=== PATIENT | male | born 1955 | race American Indian/Alaskan Native ===

== ENCOUNTER 2017-10-08 09:40 | Emergency (ER) | payer OTHER ==
[2017-10-08 09:45] VITALS: BMI 30.7
[2017-10-08 09:52] VITALS: RESP 18
[2017-10-08] MEDS ORDERED: Sodium Chloride 0.9% 1,000 ML IV ONE (10:06)
[2017-10-08] MEDS ORDERED: Iohexol 240 (50 ml) PO STA (10:06)
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
--- NOTE | 2017-10-08 10:56 | US ---
HISTORY: abd pain RO ACUTE JUSTINA COMPARISON: Renal ultrasound performed 12/20/16 TECHNIQUE: Sonographic evaluation of the right upper quadrant of the abdomen. FINDINGS: LIVER: Measures 18.5 cm in length. Echogenic liver may be seen in setting of hepatic parenchymal disease or fatty infiltration. No focal hepatic mass identified. The main portal vein appears patent with normal directional flow. No intrahepatic bile duct dilatation. GALLBLADDER: No gallstones. No gallbladder wall thickening or pericholecystic edema. Negative sonographic Centeno's sign as assessed by the lubricating specialist. COMMON BILE DUCT: Measures 2 mm. PANCREAS: Not well-visualized. RIGHT KIDNEY: Measures 10.0 x 6.3 x 5.6 cm. No obstructing calculus or hydronephrosis identified. 3.4 x 3.2 x 3.5 cm right renal cyst. AORTA: Limited visualization appears grossly unremarkable. IVC: Not well-visualized. OTHER FINDINGS: None . IMPRESSION: Echogenic liver may be seen in setting of hepatic parenchymal disease or fatty infiltration. 3.5 cm right renal cyst.
[2017-10-08] MEDS ORDERED: Sodium Chloride 0.9% 1,000 ML ONE (11:17)
[2017-10-08] MEDS ORDERED: Iohexol 240 (50 ml) ONE (11:17)
[2017-10-08] MEDS ORDERED: Morphine 4 MG/ML VIAL ONE ×2 (11:17→12:48)
[2017-10-08 11:22] LABS: SQUAMOUS EPITHIAL < 1 /hpf (0-5); URINE BILIRUBIN NEGATIVE (NEGATIVE); URINE BLOOD NEGATIVE (NEGATIVE); URINE CLARITY Clear (Clear); URINE COLOR Yellow (YELLOW); URINE GLUCOSE (UA) 3+ mg/dL (Normal); URINE LEUKOCYTE ESTERASE NEG Leu/uL (Negative); URINE NITRATE NEGATIVE (NEGATIVE); URINE PROTEIN NEGATIVE (NEGATIVE); URINE UROBILINOGEN NORMAL mg/dL (0.2-1.0)
[2017-10-08 11:27] LABS: MEAN CELL VOLUME 81.8 fL (80.0-94.0); MEAN CORPUSCULAR HEMOGLOBIN 27.9 pg (27.0-31.0); MEAN CORPUSCULAR HGB CONC 34.1 g/dL (33.0-37.0); MEAN PLATELET VOLUME 8.2 fL (7.2-11.7); NEUT % 56.1 % (50.0-75.0); RBC 5.02 Mil/uL (4.40-5.90); RED CELL DISTRIBUTION WIDTH 13.5 % (11.5-14.5); WHITE BLOOD COUNT 5.2 K/uL (4.8-10.8)
[2017-10-08 11:28] LABS: BASO % 0.7 % (0.0-2.0); EOS # 0.2 K/uL (0.0-0.7); EOS % 3.8 % (0.0-4.0); LYMPH # 1.7 K/uL (1.0-4.3); LYMPH % 33.4 % (20.0-40.0); MONO # 0.3 K/uL (0.0-0.8); NEUT # 2.9 K/uL (1.8-7.0)
[2017-10-08 11:35] LABS: ALB/GLOB RATIO 1.2 (1.0-2.1); ALBUMIN 4.2 g/dL (3.5-5.0); ALT/SGPT 47 U/L (21-72); AST/SGOT 36 U/L (17-59); BLOOD UREA NITROGEN 14 mg/dL (9-20); CALCIUM 8.6 mg/dl (8.6-10.4); GFR AFRICAN-AMERICAN > 60; GFR NON-AFRICAN AMERICAN > 60; LIPASE 152 U/L (23-300)
--- NOTE | 2017-10-08 11:49 | RAD ---
HISTORY: abd pain COMPARISON: Chest x-ray performed 12/14/12 TECHNIQUE: Chest, one view. FINDINGS: LUNGS: No focal consolidation. Please note that chest x-ray has limited sensitivity for the detection of pulmonary masses. PLEURA: No significant pleural effusion identified. No definite pneumothorax . CARDIOVASCULAR: The cardiomediastinal silhouette appears within normal limits of size. OSSEOUS STRUCTURES: No acute osseous abnormality identified. VISUALIZED UPPER ABDOMEN: Unremarkable. OTHER FINDINGS: None. IMPRESSION: No focal consolidation, significant pleural effusion, or definite pneumothorax identified.
[2017-10-08 12:52] VITALS: TEMP 97.5
--- NOTE | 2017-10-08 14:16 | CT ---
PROCEDURE: CT Abdomen and Pelvis without IV contrast. HISTORY: RUQ/R FLANK PAIN COMPARISON: Limited abdominal ultrasound performed 10/08/17 TECHNIQUE: Contiguous axial images of the abdomen and pelvis. Oral contrast was administered. No IV contrast given. Coronal and Sagittal reformats generated and reviewed. Radiation dose: Total exam DLP = 574.80 MGy-cm. This CT exam was performed using one or more of the following dose reduction techniques: Automated exposure control, adjustment of the mA and/or kV according to patient size, and/or use of iterative reconstruction technique. FINDINGS: There is limited evaluation of the solid organs without the administration of IV contrast. LOWER THORAX: No visible consolidation, pleural effusion, or pneumothorax. Evidence of gastroesophageal reflux and small hiatal hernia/distal esophageal wall thickening. LIVER: Suspect focal fatty sparing adjacent the gallbladder fossa. Hypoattenuation of the liver compatible with hepatic steatosis. GALLBLADDER AND BILE DUCTS: Unremarkable unenhanced appearance. PANCREAS: Unremarkable unenhanced appearance. SPLEEN: Unremarkable unenhanced appearance. ADRENALS: Unremarkable unenhanced appearance. KIDNEYS AND URETERS: No hydronephrosis or obstructing renal calculus. 3.9 x 2.5 cm right renal hypodense lesion measures approximately 4 HU compatible with a cyst. BLADDER: The urinary bladder appears unremarkable. REPRODUCTIVE: The prostate gland measures approximately 3.9 x 4.0 cm. Corpus cavernosum calcifications. APPENDIX: The appendix appears within normal limits of caliber. No secondary signs of acute appendicitis. BOWEL: The stomach is nondistended. The bowel loops appear within normal limits of caliber without evidence of intestinal obstruction. PERITONEUM: No significant free fluid. No definite free air. LYMPH NODES: No bulky lymphadenopathy identified. VASCULATURE: No aortic aneurysm. BONES: No acute osseous abnormality is detected. OTHER FINDINGS: None. IMPRESSION: Suspect focal fatty sparing adjacent to the gallbladder fossa. Hepatic steatosis. Probable 3.9 cm right renal cyst. Borderline enlarged prostate gland. Correlate with PSA. Calcifications involving the corpus cavernosum.
[2017-10-08 15:18] VITALS: O2SAT 98
[2017-10-08 15:46] VITALS: BP 122/82; PULSE 70
--- NOTE | 2017-10-09 15:06 | CARD ---
APPROVED REPORT EKG Measurement Heart [id number] <Conclusion> Normal sinus rhythm Normal ECG
== END 2017-10-08 15:53 | disposition home or self-care (01) ==
LOC: C.ER 09:40
DX: R10.13 Epigastric pain (principal); M54.9 Dorsalgia, unspecified; E11.9 Type 2 diabetes mellitus without complications; I10 Essential (primary) hypertension
CPT/HCPCS: 71045; 74176; 76705; 80053; 81001; 83690; 84484; 85025; 93005; 96374; 96375; 96376; 99284; J2270; J2405; J7040; Q9966

== ENCOUNTER 2018-08-12 09:03 | Emergency (ER) | payer OTHER ==
[2018-08-12 09:03] VITALS: BMI 30.7
[2018-08-12 09:15] VITALS: BP 115/71; PULSE 91; RESP 20; TEMP 97.7; O2SAT 97
--- NOTE | 2018-08-12 09:42 | C.PDOC ---
History Of Present Illness Patient is a 63M with PMH diabetes who presents to ER with complaint of sore throat, productive cough, and hoarse voice since 08/08/18. He states he has tried Robitussin, DayQuil, and Theraflu OTC without relief of symptoms. Patient also reports left ear pain, nasal congestion, and rhinorrhea. He denies fever or chills. He denies nausea and vomitings. Time Seen by Provider: 08/12/18 09:34 Chief Complaint (Nursing): Cough, Cold, Congestion History Per: Patient History/Exam Limitations: no limitations Onset/Duration Of Symptoms: Days Current Symptoms Are (Timing): Still Present Location Of Pain: Ear(s), Throat Associated Symptoms: Sore Throat, Cough, Nasal Congestion. denies: Fever, Chills Ear Symptoms: Left: Ear Fullness Severity: Mild Pain Scale Rating Of: 4 Past Medical History Vital Signs: Last Vital Signs Temp 97.7 F 08/12/18 09:13 Pulse 91 H 08/12/18 09:13 Resp 20 08/12/18 09:13 BP 115/71 08/12/18 09:13 Pulse Ox 97 08/12/18 09:13 - Medical History PMH: Diabetes, HTN Denies: Chronic Kidney Disease - [facility] Procedures APPLICATION OF SPLINT (04/06/15) COLONOSCOPY (12/22/14) Family History: States: Unknown Family Hx - Social History Hx Tobacco Use: No Hx Alcohol Use: No Hx Substance Use: No - Immunization History Hx Tetanus Toxoid Vaccination: Yes Hx Influenza Vaccination: No Hx Pneumococcal Vaccination: Yes Review Of Systems Constitutional: Negative for: Fever, Chills Eyes: Negative for: Pain, Vision Change ENT: Positive for: Nose Discharge, Other (left ear pruritus) Cardiovascular: Negative for: Chest Pain, Palpitations Respiratory: Positive for: Cough. Negative for: Shortness of Breath, Pleuritic Pain, Wheezing Gastrointestinal: Negative for: Nausea, Vomiting, Abdominal Pain, Diarrhea, Constipation Genitourinary: Negative for: Dysuria, Frequency Musculoskeletal: Negative for: Neck Pain, Back Pain Skin: Negative for: Rash Neurological: Negative for: Weakness, Numbness Physical Exam - Physical Exam Appears: Non-toxic, No Acute Distress Skin: Normal Color, Warm, Dry Head: Atraumatic, Normacephalic Eye(s): bilateral: EOMI Ear(s): Bilateral: TM Obscured By Wax Nose: Discharge (clear rhinorrhea), No Tenderness Oral Mucosa: Moist Tongue: Normal Appearing Lips: Normal Appearing Teeth: Normal Dentition Gingiva: Normal Appearing Throat: Normal, No Erythema, No Exudate Neck: Normal, Normal ROM, No Paracervical Tenderness Lymphatic: No Adenopathy Chest: Symmetrical, No Tenderness Cardiovascular: Rhythm Regular, No Murmur Respiratory: Normal Breath Sounds, No Accessory Muscle Use, No Rales, No Rhonchi, No Wheezing Gastrointestinal/Abdominal: Normal Exam, Soft, No Tenderness Back: No Muscle Spasm, No Paraspinal Tenderness Neurological/Psych: Normal Speech, Normal Cognition ED Course And Treatment O2 Sat by Pulse Oximetry: 97 Disposition Counseled Patient/Family Regarding: Diagnosis, Need For Followup, Rx Given - Disposition Referrals: Gianni Boyer MD [Staff Provider] - Disposition: HOME/ ROUTINE Disposition Time: 09:49 Condition: GOOD Additional Instructions: You may take Tessalon Perles every 8 hours, up to three times a day. You may take Promethazine cough syrup every 6 hours, up to 4 times a day. You should follow up with your primary medical doctor, Dr. Boyer within the next week if you have no improvement. You can try over the counter Debrox drops to help soften ear wax. Prescriptions: Benzonatate [Tessalon Perles] 100 mg PO Q8H PRN #9 sgl PRN Reason: Cough Promethazine DM [Phenergan DM Syrup] 5 ml PO Q6H PRN #60 ml PRN Reason: Cough Instructions: Viral Pharyngitis, Sore Throat, Adult (DC), Upper Respiratory Infection (ED) Forms: [employer] (German) - POA Present On Arrival: None - Clinical Impression Clinical Impression: Pharyngitis, Viral URI - PA / METAL BALER / Resident Statement / has reviewed & agrees with the documentation as recorded. / has examined the patient and agrees with the treatment plan.
== END 2018-08-12 10:11 | disposition home or self-care (01) ==
LOC: C.ER 09:03
DX: J02.9 Acute pharyngitis, unspecified (principal); J06.9 Acute upper respiratory infection, unspecified; E11.9 Type 2 diabetes mellitus without complications; I10 Essential (primary) hypertension

== ENCOUNTER 2018-12-10 12:14 | Observation (INO) | payer OTHER ==
[2018-12-10 12:14] VITALS: BMI 30.7
[2018-12-10 12:52] LABS: SQUAMOUS EPITHIAL < 1 /hpf (0-5); URINE BILIRUBIN NEGATIVE (NEGATIVE); URINE BLOOD NEGATIVE (NEGATIVE); URINE CLARITY Clear (Clear); URINE COLOR Yellow (YELLOW); URINE GLUCOSE (UA) 3+ mg/dL (Normal); URINE LEUKOCYTE ESTERASE NEG Leu/uL (Negative); URINE PROTEIN NEGATIVE (NEGATIVE); URINE UROBILINOGEN NORMAL mg/dL (0.2-1.0)
--- NOTE | 2018-12-10 13:15 | C.PDOC ---
History Of Present Illness 63 yr old female w/ hx of pancreatitis, htn, hld p/w abdominal pain. Pt notes abdominal pain started yesterday, throbbing, feels similar to his pancreatitis, goes into his RUQ / back area. No fall or trauma. No etoh use of new medic ations. No statin usage. No nausea or vomiting, chills or night sweats. No recent travel or new foods. No chest pain or shortness of berath. No fever, chills or night sweats. No other complaints. No enuresis or encoparesis or decrease in sensation in legs. Time Seen by Provider: 12/10/18 12:32 Chief Complaint (Nursing): Abdominal Pain Past Medical History Vital Signs: Last Vital Signs Temp 97.6 F 12/10/18 12:18 Pulse 86 12/10/18 12:18 Resp 18 12/10/18 12:18 BP 112/77 12/10/18 12:18 Pulse Ox 99 12/10/18 12:18 - Medical History PMH: Diabetes, HTN Denies: Chronic Kidney Disease - [facility] Procedures APPLICATION OF SPLINT (04/06/15) COLONOSCOPY (12/22/14) Family History: States: Unknown Family Hx - Social History Hx Tobacco Use: No Hx Alcohol Use: No Hx Substance Use: No - Immunization History Hx Tetanus Toxoid Vaccination: Yes Hx Influenza Vaccination: No Hx Pneumococcal Vaccination: Yes Review Of Systems Constitutional: Negative for: Fever, Chills, Weakness, Malaise Eyes: Negative for: Pain, Vision Change, Conjunctivae Inflammation ENT: Negative for: Ear Pain, Ear Discharge, Nose Pain, Nose Congestion, Mouth Pain, Mouth Swelling Cardiovascular: Negative for: Chest Pain, Palpitations, Orthopnea, Edema Respiratory: Negative for: Cough, Shortness of Breath Gastrointestinal: Positive for: Abdominal Pain. Negative for: Nausea, Vomiting, Diarrhea, Constipation, Melena, Hematochezia, Hematemesis Genitourinary: Negative for: Dysuria, Frequency, Incontinence, Hematuria, Penile Discharge, Scrotal Pain Musculoskeletal: Negative for: Neck Pain, Shoulder Pain, Hand Pain Skin: Negative for: Rash, Lesions Neurological: Negative for: Weakness, Numbness, Confusion, Seizures, Altered Mental Status, Headache Psych: Negative for: Anxiety, Depression, Psychosis, Suicidal ideation Physical Exam - Physical Exam Appears: Well, Non-toxic, No Acute Distress Skin: Normal Color, Warm Head: Atraumatic, Normacephalic Eye(s): bilateral: Normal Inspection, PERRL, EOMI Ear(s): Bilateral: Normal Nose: Normal, No Flaring, No Discharge Tongue: Normal Appearing Lips: Normal Appearing Teeth: Normal Dentition Gingiva: Normal Appearing Throat: Normal, No Erythema, No Exudate, No Drooling Neck: Normal, Normal ROM, Supple, Other (no meningeal signs) Chest: Symmetrical Cardiovascular: Rhythm Regular Respiratory: Normal Breath Sounds, No Rales, No Rhonchi, No Stridor, No W heezing, No Plerual Rub Gastrointestinal/Abdominal: Soft, Tenderness (epigastric, ruq), No Mass, No Distention, No Guarding Back: Normal Inspection, No CVA Tenderness Extremity: Normal ROM, No Tenderness, No Swelling Extremity: Bilateral: Atraumatic Neurological/Psych: Oriented x3, Normal Speech, Normal Cognition, Normal Motor Gait: Steady ED Course And Treatment - Laboratory Results Result Diagrams: 12/10/18 13:41 12/10/18 13:41 Lab Results: Urine Color Yellow (YELLOW) 12/10/18 12:44 Urine Clarity Clear (Clear) 12/10/18 12:44 Urine pH 6.0 (5.0-8.0) 12/10/18 12:44 Ur Specific [place] 1.026 (1.003-1.030) 12/10/18 12:44 Urine Protein Negative mg/dL (NEGATIVE) 12/10/18 12:44 Urine Glucose (UA) 3+ mg/dL (Normal) H 12/10/18 12:44 Urine Ketones Negative mg/dL (NEGATIVE) 12/10/18 12:44 Urine Blood Negative (NEGATIVE) 12/10/18 12:44 Urine Nitrate Negative (NEGATIVE) 12/10/18 12:44 Urine Bilirubin Negative (NEGATIVE) 12/10/18 12:44 Urine Urobilinogen Normal mg/dL (0.2-1.0) 12/10/18 12:44 Ur Leukocyte Esterase Neg Maura/uL (Negative) 12/10/18 12:44 Urine RBC (Auto) < 1 /hpf (0-3) 12/10/18 12:44 Ur Squamous Epith Cells < 1 /hpf (0-5) 12/10/18 12:44 O2 Sat by Pulse Oximetry: 99 Medical Decision Making Medical Decision Makin yr old male w/ hx of DM2, HTN p/w abdominal pain that feels similiar to his pancreatitis. No fall or trauma. RUQ pain on exam. No CVAT or vertebral tenderness. No fever. chills or night sweats. Likely pancreatitis pain vs gallbladder issue vs gastritis. pending imaging and labs 1630 Mild pancreatitis per labs Pt endorses additional pain labs largely unremarkable no UTI on labx no prostate abnl, no difficulty stooling appreciate consult w/ Dr. Linares: to obs to his service Disposition - Disposition Disposition Time: 16:35 Condition: STABLE - Clinical Impression Clinical Impression: Pancreatitis
[2018-12-10 13:49] LABS: BASO % 1.1 % (0.0-2.0); EOS # 0.2 K/uL (0.0-0.7); EOS % 5.4 % (0.0-4.0); HEMOGLOBIN 13.5 g/dL (12.0-18.0); LYMPH # 1.4 K/uL (1.0-4.3); LYMPH % 37.1 % (20.0-40.0); MEAN CELL VOLUME 83.7 fL (80.0-94.0); MEAN CORPUSCULAR HEMOGLOBIN 27.7 pg (27.0-31.0); MEAN CORPUSCULAR HGB CONC 33.1 g/dL (33.0-37.0); MEAN PLATELET VOLUME 8.2 fL (7.2-11.7); MONO # 0.3 K/uL (0.0-0.8); MONO % 7.4 % (0.0-10.0); NEUT # 1.9 K/uL (1.8-7.0); NRBC % 0.1 % (0.0-2.0); RBC 4.89 Mil/uL (4.40-5.90); RED CELL DISTRIBUTION WIDTH 13.3 % (11.5-14.5); WHITE BLOOD COUNT 3.8 K/uL (4.8-10.8)
[2018-12-10] MEDS ORDERED: Iohexol 300 100 ML IJ ONE (13:49)
[2018-12-10 14:06] LABS: ALB/GLOB RATIO 1.5 (1.0-2.1); ALBUMIN 4.2 g/dL (3.5-5.0); ALT/SGPT 23 U/L (21-72); AST/SGOT 33 U/L (17-59); BLOOD UREA NITROGEN 16 mg/dL (9-20); CALCIUM 9.2 mg/dl (8.6-10.4); GFR NON-AFRICAN AMERICAN > 60; LIPASE 502 U/L (23-300)
--- NOTE | 2018-12-10 14:25 | US ---
Date of service: 12/10/2018 HISTORY: ruq pain COMPARISON: CT abdomen and pelvis without IV contrast performed 09/19/18 TECHNIQUE: Sonographic evaluation of the right upper quadrant of the abdomen. FINDINGS: LIVER: Measures 18.0 cm in sagittal dimension. Echogenic liver may be seen in setting of hepatic parenchymal disease or fatty infiltration. No focal hepatic mass identified. The main portal vein appears patent with normal directional flow. No intrahepatic bile duct dilatation. GALLBLADDER: No gallstones. No gallbladder wall thickening or pericholecystic edema. Negative sonographic Centeno's sign as assessed by the pediatric lpn. COMMON BILE DUCT: Measures 6 mm. PANCREAS: Not well-visualized. RIGHT KIDNEY: Measures approximately 10.2 x 4.0 x 5.2 cm. No obstructing calculus or hydronephrosis identified. 3.1 x 2.7 x 3.6 cm midpole calculus AORTA: Limited visualization appears grossly unremarkable. IVC: Not well-visualized. OTHER FINDINGS: None . IMPRESSION: 3.1 x 2.7 x 3.6 cm right midpole renal cyst. Echogenic liver may be seen in setting of hepatic parenchymal disease or fatty infiltration.
--- NOTE | 2018-12-10 15:25 | CT ---
PROCEDURE: CT Abdomen and Pelvis without Oral or IV contrast. HISTORY: ruq, epigastric pain COMPARISON: CT abdomen and pelvis without IV contrast performed 09/19/18, right upper quadrant ultrasound performed 12/10/18 TECHNIQUE: Contiguous axial images of the abdomen and pelvis. No oral or IV contrast administered. Coronal and Sagittal reformats generated and reviewed. Radiation dose: Total exam DLP = 1261.22 mGy-cm. This CT exam was performed using one or more of the following dose reduction techniques: Automated exposure control, adjustment of the mA and/or kV according to patient size, and/or use of iterative reconstruction technique. FINDINGS: There is limited evaluation of the solid organs without the administration of IV contrast. LOWER THORAX: No visible consolidation, pleural effusion, or pneumothorax. Small hiatal hernia/distal esophageal wall thickening. LIVER: Unremarkable unenhanced appearance. GALLBLADDER AND BILE DUCTS: Unremarkable unenhanced appearance. PANCREAS: Unremarkable unenhanced appearance. SPLEEN: Unremarkable unenhanced appearance. ADRENALS: Unremarkable unenhanced appearance. KIDNEYS AND URETERS: No hydronephrosis or obstructing renal calculus. 3.2 x 2.3 cm right renal cyst. BLADDER: Thick walled urinary bladder. REPRODUCTIVE: Prostate gland measures approximately 3.7 x 3.5 cm. APPENDIX: The appendix appears within normal limits of caliber. No secondary signs of acute appendicitis. BOWEL: The stomach is nondistended. Lack of oral contrast limits evaluation for bowel pathology. The bowel loops appear within normal limits of caliber without evidence of intestinal obstruction. PERITONEUM: No significant free fluid. No definite free air. LYMPH NODES: Sub cm retroperitoneal lymph nodes, nonspecific. VASCULATURE: No aortic aneurysm. BONES: No acute osseous abnormality is detected. OTHER FINDINGS: None. IMPRESSION: Markedly thick-walled urinary bladder. Recommend correlation with urinalysis and cystoscopy if indicated. 3.2 x 2.3 cm right renal cyst. Nonspecific sub cm retroperitoneal lymph nodes.
[2018-12-10] MEDS ORDERED: Morphine 4 MG/ML VIAL ONE (16:46)
[2018-12-10] MEDS ORDERED: Sodium Chloride 0.9% 1,000 ML ONE (16:46)
[2018-12-10] MEDS: Sodium Chloride 0.9% 1,000 ML IV SCH ×3 (16:48→21:45)
--- NOTE | 2018-12-10 19:23 | CARD ---
APPROVED REPORT Date of service: 12/10/2018 EKG Measurement Heart [id number] <Conclusion> Normal sinus rhythm Nonspecific T wave abnormality Abnormal ECG
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
[2018-12-10 21:23] LABS: CK-MB 1.73 ng/mL (0.0-3.38)
[2018-12-10] MEDS: (Novolin R) Insulin Human Regular 100 units/ml vial SC SCH (21:32)
[2018-12-11] MEDS: Sodium Chloride 0.9% 1,000 ML IV SCH ×5 (00:20→19:54)
[2018-12-11 06:31] LABS: CK-MB 1.46 ng/mL (0.0-3.38)
[2018-12-11] MEDS: (Novolin R) Insulin Human Regular 100 units/ml vial SC SCH ×4 (08:24→21:25)
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
--- NOTE | 2018-12-11 14:06 | CARD ---
APPROVED REPORT Date of service: 12/11/2018 EXAM: Two-dimensional and M-mode echocardiogram with Doppler and color Doppler. Other Information Quality : GoodRhythm : INDICATION Dizziness and Vertigo RISK FACTORS Hypertension Diabetes 2D DIMENSIONS IVSd1.1 (0.7-1.1cm)LVDd3.9 (3.9-5.9cm) PWd1.0 (0.7-1.1cm)LA Fxcnys19 (18-58mL) LVDs2.0 (2.5-4.0cm)FS (%) 47.5 % LVEF (%)65.0 (>50%)LVEF (Celestin's)62.90 % M-Mode DIMENSIONS Left Atrium (MM)3.52 (2.5-4.0cm)IVSd0.93 (0.7-1.1cm) Aortic Root2.81 (2.2-3.7cm)LVDd5.31 (4.0-5.6cm) Aortic Cusp Exc.1.99 (1.5-2.0cm)PWd0.73 (0.7-1.1cm) FS (%) 33 %LVDs3.56 (2.0-3.8cm) LVEF (%)61 (>50%) Mitral Valve MV E Lqipwosi73.2cm/sMV A Itxlydvo71.4cm/sE/A ratio0.7 TDI Lateral E' Peak V7.13cm/sMedial E' Peak V6.80cm/sE/Lateral E'7.0 E/Medial E'7.4 Tricuspid Valve TR Peak Ydnddurz721en/sTR Peak Gr.[id number] LEFT VENTRICLE The left ventricle is normal size. There is borderline concentric left ventricular hypertrophy. Left ventricle systolic function is normal. The Ejection Fraction is 60-65%. There is normal LV segmental wall motion. Transmitral Doppler flow pattern is Grade I-abnormal relaxation pattern. There is no ventricular septal defect visualized. RIGHT VENTRICLE The right ventricle is normal size. The right ventricular systolic function is normal. ATRIA The left atrium is mildly dilated. The right atrium size is normal. AORTIC VALVE The aortic valve is mildly sclerotic. The aortic valve is tri-cuspid. No aortic regurgitation is present. There is no aortic valvular stenosis. MITRAL VALVE The mitral valve is normal in structure. There is no evidence of mitral valve prolapse. There is no mitral valve regurgitation noted. TRICUSPID VALVE The tricuspid valve is normal in structure. There is trace tricuspid regurgitation. There is no pulmonary hypertension. PULMONIC VALVE The pulmonic valve is not well visualized. There is no pulmonic valvular regurgitation. GREAT VESSELS The aortic root is normal in size. The ascending aorta is normal in size. The IVC is normal in size and collapses >50% with inspiration. PERICARDIAL EFFUSION There is no pericardial effusion. <Conclusion> There is borderline concentric left ventricular hypertrophy. Left ventricle systolic function is normal. The Ejection Fraction is 60-65%. Transmitral Doppler flow pattern is Grade I-abnormal relaxation pattern.
--- NOTE | 2018-12-11 21:55 | CP.PCM.PN ---
Subjective - Date & Time of Evaluation Date of Evaluation: 12/11/18 Time of Evaluation: 21:54 - Subjective Subjective: Patient earlier seen byGastroenterologist. Patient does not have a symptoms of pancreatitis at this time. Will try to advance the diet. On examination: Mild discomfort in the left upper quadrant. Chest good air entry Regular [place] noted Nontender abdomen. No pedal edema Labs reviewed Assessment and recommendation: 63-year-old male with a history of lower back pain, hypertension, chronic disc disease, diabetes uncontrolled admitted to the hospital with suspected pancreatitis, nonspecific We will discontinue IV fluid. Advance the diet. Labs tomorrow, if stable, will plan the patient for discharge tomorrow if he tolerates the feeding Objective - Vital Signs/Intake and Output Vital Signs (last 24 hours): Temp Pulse Resp BP Pulse Ox 98.1 F 66 20 137/90 97 12/11/18 16:00 12/11/18 16:00 12/11/18 16:00 12/11/18 16:00 12/11/18 18:36 Intake and Output: 12/11/18 12/12/18 18:59 06:59 Intake Total 2640 Balance 2640 - Medications Medications: Current Medications Heparin Sodium (Porcine) (Heparin) 5,000 units SC Q12 [facility] Last Admin: 12/11/18 21:23 Dose: 5,000 units Influenza Virus Vaccine (Flucelvax Quad [id number] Syr) 60 mcg IM .ONCE ONE Stop: 12/12/18 10:01 Insulin Human Regular (Novolin R) 0 unit SC [facility]; Protocol Last Admin: 12/11/18 21:25 Dose: Not Given Morphine Sulfate (Morphine) 2 mg IV Q6 PRN PRN Reason: pain Last Admin: 12/11/18 15:09 Dose: 2 mg Pneumococcal Polyvalent Vaccine (Pneumovax 23 Vaccine) 0.5 ml IM .ONCE ONE Stop: 12/12/18 10:01 - Labs Labs: 12/10/18 13:41 12/10/18 13:41
[2018-12-12 08:15] LABS: BASO % 0.9 % (0.0-2.0); EOS # 0.2 K/uL (0.0-0.7); EOS % 5.9 % (0.0-4.0); HEMOGLOBIN 13.1 g/dL (12.0-18.0); LYMPH # 1.6 K/uL (1.0-4.3); LYMPH % 40.6 % (20.0-40.0); MEAN CELL VOLUME 83.2 fL (80.0-94.0); MEAN CORPUSCULAR HEMOGLOBIN 27.5 pg (27.0-31.0); MONO # 0.3 K/uL (0.0-0.8); NEUT # 1.7 K/uL (1.8-7.0); NEUT % 44.6 % (50.0-75.0); NRBC % 0.1 % (0.0-2.0); RBC 4.77 Mil/uL (4.40-5.90); RED CELL DISTRIBUTION WIDTH 13.1 % (11.5-14.5); WHITE BLOOD COUNT 3.8 K/uL (4.8-10.8)
[2018-12-12] MEDS: (Novolin R) Insulin Human Regular 100 units/ml vial SC SCH (08:25)
[2018-12-12 08:29] LABS: ALB/GLOB RATIO 1.3 (1.0-2.1); ALBUMIN 3.6 g/dL (3.5-5.0); ALT/SGPT 35 U/L (21-72); AMYLASE 65 U/L (30-110); AST/SGOT 39 U/L (17-59); BLOOD UREA NITROGEN 8 mg/dL (9-20); CALCIUM 8.6 mg/dl (8.6-10.4); GFR NON-AFRICAN AMERICAN > 60; HDL CHOLESTEROL 48 mg/dL (30-70); LIPASE 116 U/L (23-300)
[2018-12-12 08:36] LABS: LDL CHOLESTEROL 123 mg/dL (0-129)
[2018-12-12 08:40] VITALS: BP 117/61; PULSE 72; RESP 18; TEMP 98.8; O2SAT 96
--- NOTE | 2018-12-12 09:27 | CP.PCM.DIS ---
Provider - Provider Date of Admission: 12/10/18 16:29 Attending physician: Gianni Boyer MD Consults: 12/10/18 19:42 Gastroenterology Consult Routine Comment: Consulting Provider: Anival Rhoades Consulting Physician: Anival Rhoades Reason for Consult: pancreatitis Hospital Course - Lab Results Lab Results: Most Recent Lab Values WBC 3.8 K/uL (4.8-10.8) L 12/12/18 08:07 RBC 4.77 Mil/uL (4.40-5.90) 12/12/18 08:07 Hgb 13.1 g/dL (12.0-18.0) 12/12/18 08:07 Hct 39.7 % (35.0-51.0) 12/12/18 08:07 MCV 83.2 fL (80.0-94.0) 12/12/18 08:07 MCH 27.5 pg (27.0-31.0) 12/12/18 08:07 MCHC 33.0 g/dL (33.0-37.0) 12/12/18 08:07 RDW 13.1 % (11.5-14.5) 12/12/18 08:07 Plt Count 231 K/uL (130-400) 12/12/18 08:07 MPV 8.0 fL (7.2-11.7) 12/12/18 08:07 Neut % (Auto) 44.6 % (50.0-75.0) L 12/12/18 08:07 Lymph % (Auto) 40.6 % (20.0-40.0) H 12/12/18 08:07 [place] % (Auto) 8.0 % (0.0-10.0) 12/12/18 08:07 Eos % (Auto) 5.9 % (0.0-4.0) H 12/12/18 08:07 Baso % (Auto) 0.9 % (0.0-2.0) 12/12/18 08:07 Neut # (Auto) 1.7 K/uL (1.8-7.0) L 12/12/18 08:07 Lymph # (Auto) 1.6 K/uL (1.0-4.3) 12/12/18 08:07 [place] # (Auto) 0.3 K/uL (0.0-0.8) 12/12/18 08:07 Eos # (Auto) 0.2 K/uL (0.0-0.7) 12/12/18 08:07 Baso # (Auto) 0.0 K/uL (0.0-0.2) 12/12/18 08:07 Sodium 135 mmol/L (132-148) 12/12/18 08:07 Potassium 3.9 mmol/L (3.6-5.2) 12/12/18 08:07 Chloride 103 mmol/L (98-107) 12/12/18 08:07 Carbon Dioxide 27 mmol/L (22-30) 12/12/18 08:07 Anion Gap 9 (10-20) L 12/12/18 08:07 BUN 8 mg/dL (9-20) L 12/12/18 08:07 Creatinine 0.9 mg/dL (0.8-1.5) 12/12/18 08:07 Est GFR ( Amer) > 60 12/12/18 08:07 Est GFR (Non-Af Amer) > 60 12/12/18 08:07 POC Glucose (mg/dL) 226 mg/dL (65-110) H 12/11/18 21:03 Random Glucose 192 mg/dL (75-110) H D 12/12/18 08:07 Calcium 8.6 mg/dl (8.6-10.4) 12/12/18 08:07 Phosphorus 2.9 mg/dL (2.5-4.5) 12/12/18 08:07 Magnesium 1.8 mg/dL (1.6-2.3) 12/12/18 08:07 Total Bilirubin 0.5 mg/dL (0.2-1.3) 12/12/18 08:07 AST 39 U/L (17-59) 12/12/18 08:07 ALT 35 U/L (21-72) 12/12/18 08:07 Alkaline Phosphatase 75 U/L (38-126) 12/12/18 08:07 Total Creatine Kinase 255 U/L (55-170) H 12/11/18 05:48 CK-MB (Mass) 1.46 ng/mL (0.0-3.38) 12/11/18 05:48 Troponin I < 0.0120 ng/mL (0.00-0.120) 12/11/18 17:41 Total Protein 6.2 g/dL (6.3-8.3) L 12/12/18 08:07 Albumin 3.6 g/dL (3.5-5.0) 12/12/18 08:07 Globulin 2.7 gm/dL (2.2-3.9) 12/12/18 08:07 Albumin/Globulin Ratio 1.3 (1.0-2.1) 12/12/18 08:07 Triglycerides 200 mg/dL (0-149) H D 12/12/18 08:07 Cholesterol 195 mg/dL (0-199) 12/12/18 08:07 LDL Cholesterol Direct 123 mg/dL (0-129) 12/12/18 08:07 HDL Cholesterol 48 mg/dL (30-70) 12/12/18 08:07 Amylase 65 U/L (30-110) 12/12/18 08:07 Lipase 116 U/L (23-300) 12/12/18 08:07 TSH 3rd Generation 2.95 mIU/L (0.46-4.68) 12/12/18 08:07 Urine Color Yellow (YELLOW) 12/10/18 12:44 Urine Clarity Clear (Clear) 12/10/18 12:44 Urine pH 6.0 (5.0-8.0) 12/10/18 12:44 Ur Specific [place] 1.026 (1.003-1.030) 12/10/18 12:44 Urine Protein Negative mg/dL (NEGATIVE) 12/10/18 12:44 Urine Glucose (UA) 3+ mg/dL (Normal) H 12/10/18 12:44 Urine Ketones Negative mg/dL (NEGATIVE) 12/10/18 12:44 Urine Blood Negative (NEGATIVE) 12/10/18 12:44 Urine Nitrate Negative (NEGATIVE) 12/10/18 12:44 Urine Bilirubin Negative (NEGATIVE) 12/10/18 12:44 Urine Urobilinogen Normal mg/dL (0.2-1.0) 12/10/18 12:44 Ur Leukocyte Esterase Neg [place]/uL (Negative) 12/10/18 12:44 Urine RBC (Auto) < 1 /hpf (0-3) 12/10/18 12:44 Ur Squamous Epith Cells < 1 /hpf (0-5) 12/10/18 12:44 Discharge Plan - Follow Up Plan Condition: STABLE Disposition: HOME/ ROUTINE
[2018-12-12] MEDS ORDERED: Simethicone 80 mg Chewtab PO PRN (09:54)
[2018-12-12] MEDS ORDERED: Pneumococcal 23-Valent Vaccine IM ONE (10:00)
[2018-12-12] MEDS ORDERED: Influenza Vaccine 60 mcg/0.5 mL SYR (4YR UP) IM ONE (10:00)
[2018-12-12] MEDS ORDERED: Simethicone 80 mg Chewtab PO SCH (12:00)
== END 2018-12-12 11:11 | disposition home or self-care (01) ==
LOC: C.ER 12:14 → C.3T 16:29
PROVIDERS: ADMIT Internal Medicine; ATTEND Internal Medicine
DX: K29.70 Gastritis, unspecified, without bleeding (principal); E11.43 Type 2 diabetes mellitus with diabetic autonomic (poly)neuropathy; K31.84 Gastroparesis; E78.5 Hyperlipidemia, unspecified; I10 Essential (primary) hypertension; Z83.3 Family history of diabetes mellitus; Z91.013 Allergy to seafood; G89.29 Other chronic pain; K57.90 Diverticulosis of intestine, part unspecified, without perforation or abscess without bleeding
CPT/HCPCS: 36415; 74176; 76705; 80053; 80061; 81001; 82150; 82948; 83690; 83735; 84100; 84443; 84484; 85025; 85027; 86039; 93005; 93306; 96361; 96372; 96374; 96375; 96376; 99285; C9113; G0378; J1644; J2270; J7030